=== PATIENT | female | born 1965 | race Caucasian/White ===

== ENCOUNTER 2020-06-14 18:49 | Emergency (ER) | payer SELFPAY ==
[2020-06-14 19:05] VITALS: TEMP 97.7
[2020-06-14] MEDS ORDERED: ONDANSETRON INJ 4 MG/2 ML VIAL ONE (19:21)
[2020-06-14] MEDS ORDERED: ONDANSETRON INJ 4 MG/2 ML VIAL IV ONE (19:25)
[2020-06-14] MEDS ORDERED: KETOROLAC TROMETHAMINE INJ 30 MG/ML VIAL IV ONE (19:50)
--- NOTE | 2020-06-14 19:52 | CT ---
EXAM DESCRIPTION: Abdoment/Pelvis w/o Contrast CLINICAL HISTORY: 54 years Female RLQ pain and right flank pain. COMPARISON: None TECHNIQUE: Multiple contiguous axial CT slices were taken from the diaphragms to the pubic symphysis without intravenous contrast. This exam was performed according to our departmental dose-optimization program, which includes automated exposure control, adjustment of the mA and/or kV according to patient size and/or use of iterative reconstruction technique. FINDINGS: The lung bases are clear. Visualized cardiomediastinal structures are normal. The liver, gallbladder, bile ducts, pancreas, spleen and adrenals are normal. There is moderate hydroureteronephrosis. There is a 3 mm stone within the bladder, adjacent to the right ureterovesical junction. The left kidney and ureter are normal. Uterus is normal. Bilateral ovarian cysts measuring 3.3 and 3.4 cm, respectively. The small bowel is normal. The appendix is normal. The large bowel is normal. No ascites, pneumatosis or pneumoperitoneum. No lymphadenopathy. The aorta and IVC are normal. There are no abdominal wall hernia defects. No destructive osseous lesions. IMPRESSION: 1. 3 mm bladder stone adjacent ureterovesical junction, with associated moderate hydroureteronephrosis, indicating recent passage into the bladder. 2. Bilateral ovarian cysts measuring up to 3.4 cm. Recommend prompt pelvic ultrasound follow-up. Electronically signed by: Abner Graham MD 06/14/2020 7:51 PM CDT
[2020-06-14] MEDS ORDERED: LIDOCAINE 2% 5 ML VIAL INJ ONE (20:12)
[2020-06-14] MEDS ORDERED: HYDROmorphone HCL INJ 2 MG/ML VIAL IV ONE (20:12)
[2020-06-14] MEDS ORDERED: LIDOCAINE 2% 50 ML VIAL ONE (20:15)
[2020-06-14] MEDS ORDERED: LIDOCAINE 2% 100 MG/5 ML SYG IV ONE (20:20)
--- NOTE | 2020-06-14 20:30 | ED.PDOC ---
History of Present Illness - General Chief Complaint: Abdominal Pain Stated Complaint: RLQ pain radiating to right groin Time Seen by Provider: 06/14/20 19:20 Source: patient, RN notes reviewed, Vital Signs reviewed Exam Limitations: no limitations - History of Present Illness Initial Comments: Patient is a 54-year-old white female who presents with complaints of right lower quadrant pain for the last day and a half. Patient states that it radiates to her right flank. Patient denies any fever or chills. The pain is stabbing in nature. It is colicky in nature. Is severe in intensity. Timing/Duration: getting worse, other - 1.5 days. Severity: severe Improving Factors: nothing Worsening Factors: nothing Associated Symptoms: nausea/vomiting - nausea only Allergies/Adverse Reactions: Allergies NO KNOWN ALLERGY Allergy (Verified 06/14/20 19:09) Home Medications: Ambulatory Orders Ketorolac Tromethamine [Toradol Tabs] 10 mg PO Q6H #12 tab 06/14/20 Review of Systems - Review of Systems Constitutional: States: no symptoms reported, see HPI. Denies: chills, fever, malaise, weakness EENTM: States: no symptoms reported. Denies: eye pain, blurred vision, double vision Respiratory: States: no symptoms reported. Denies: cough, short of breath Cardiology: States: no symptoms reported. Denies: chest pain, palpitations, syncope Gastrointestinal/Abdominal: States: see HPI, abdominal pain, nausea. Denies: diarrhea, vomiting Genitourinary: States: no symptoms reported. Denies: dysuria, frequency, hematuria Musculoskeletal: States: see HPI, back pain. Denies: joint pain, neck pain Skin: States: no symptoms reported. Denies: change in color, rash Neurological: States: no symptoms reported. Denies: tingling, tremors, weakness Endocrine: States: no symptoms reported. Denies: increased hunger, increased thirst, increased urine Hematologic/Lymphatic: States: no symptoms reported. Denies: blood clots, easy bleeding All other Systems: Reviewed and Negative, No Change from Baseline Past Medical History (General) - Patient Medical History Hx Seizures: No Hx Stroke: No Hx Dementia: No Hx Asthma: No Hx of COPD: No Hx Cardiac Disorders: No Hx Congestive Heart Failure: No Hx Pacemaker: No Hx Hypertension: No Hx Thyroid Disease: No Hx Diabetes: No Hx Gastroesophageal Reflux: No Hx Renal Disease: No Hx Cancer: No Hx of HIV: No Hx Hepatitis C: No Hx MRSA: No Surgical History: no surgical history - Vaccination History Hx Tetanus, Diphtheria Vaccination: No Hx Influenza Vaccination: No Hx Pneumococcal Vaccination: No Immunizations Up to Date: No - Social History Hx Tobacco Use: No Hx Chewing Tobacco Use: No Hx Alcohol Use: No Hx Substance Use: No Hx Substance Use Treatment: No Hx Depression: No Feels Threatened In Home Enviroment: No Feels Threatened In a Relationship: No Hx Physical Abuse: No Hx Emotional Abuse: No Hx Suspected Abuse: No - Female History Patient is a Female of Child Bearing Age (10 -59 yrs old): Yes Patient : No - Triage Comment ED Triage Comment: The patient was alert and oriented times 4 and complained of lower right abdominal pain. She was holding her right side and rated her pain a 9 on the pain scale. She denied nausea at the time of assessment but did have noted pain in the back right flank. Family Medical History - Family History Mother Family History: Unknown Physical Exam - Physical Exam General Appearance: Alert, Anxious, Obvious distress, Restless, Well Developed, Well Groomed, Well Hydrated, Well Nourished Eye Exam: bilateral normal Ears, Nose, Throat: hearing grossly normal, normal ENT inspection, normal pharynx Neck: non-tender, full range of motion, supple Respiratory: chest non-tender, lungs clear, normal breath sounds, no respiratory distress, no accessory muscle use Cardiovascular/Chest: normal peripheral pulses, regular rate, rhythm, no edema, no gallop, no murmur Peripheral Pulses: radial,right: 2+, radial,left: 2+ Gastrointestinal/Abdominal: normal bowel sounds, non tender, soft, no organomegaly, no pulsatile mass Back Exam: no vertebral tenderness, CVA tenderness (R) Extremity: normal range of motion, non-tender, normal inspection, no pedal edema 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 06/14/20 21:38 Patient's pain was markedly improved after IV medications. Patient has been given 1 L IV fluids and is tolerating p.o. Pay patient has been unable to urinate and provide a urine sample at this time. Plan on discharge home. Patient to return for worsening pain. I discussed this plan of care with the patient and her daughter and they voiced understanding and agreement with plan of care. Perico Suárez M.D. #[id number] - Results/Orders Results/Orders: EXAM DESCRIPTION: Abdoment/Pelvis w/o Contrast CLINICAL HISTORY: 54 years Female RLQ pain and right flank pain. COMPARISON: None TECHNIQUE: Multiple contiguous axial CT slices were taken from the diaphragms to the pubic symphysis without intravenous contrast. This exam was performed according to our departmental dose-optimization program, which includes automated exposure control, adjustment of the mA and/or kV according to patient size and/or use of iterative reconstruction technique. FINDINGS: The lung bases are clear. Visualized cardiomediastinal structures are normal. The liver, gallbladder, bile ducts, pancreas, spleen and adrenals are normal. There is moderate hy droureteronephrosis. There is a 3 mm stone within the bladder, adjacent to the right ureterovesical junction. The left kidney and ureter are normal. Uterus is normal. Bilateral ovarian cysts measuring 3.3 and 3.4 cm, respectively. The small bowel is normal. The appendix is normal. The large bowel is normal. No ascites, pneumatosis or pneumoperitoneum. No lymphadenopathy. The aorta and IVC are normal. There are no abdominal wall hernia defects. No destructive osseous lesions. IMPRESSION: 1. 3 mm bladder stone adjacent ureterovesical junction, with associated moderate hydroureteronephrosis, indicating recent passage into the bladder. 2. Bilateral ovarian cysts measuring up to 3.4 cm. Recommend prompt pelvic ultrasound follow-up. Electronically signed by: Abner Graham MD 06/14/2020 7:51 PM 06/14/20 19:09 UA [URINALYSIS] Stat 06/14/20 19:15 EKG STAT Laboratory Results - last 24 hr 06/14/20 06/14/20 19:31 19:31 WBC 6.9 RBC 4.54 Hgb 13.1 Hct 39.0 MCV 85.8 MCH 29.0 MCHC 33.7 RDW 16.1 H Plt Count 390 MPV 7.3 L Absolute Neuts (auto) 5.50 Absolute Lymphs (auto) 1.10 Absolute Monos (auto) 0.30 Absolute Eos (auto) 0.00 Absolute Basos (auto) 0.00 Neutrophils % 79.5 H Lymphocytes % 15.7 L Monocytes % 3.9 Eosinophils % 0.2 L Basophils % 0.7 Sodium 138 Potassium 3.7 Chloride 106 Carbon Dioxide 20 L Anion Gap 15.7 BUN 12 Creatinine 0.80 BUN/Creatinine Ratio 15.0 Random Glucose 132 H Serum Osmolality 277.3 Calcium 8.9 Total Bilirubin 0.7 AST 23 ALT 16 Alkaline Phosphatase 70 Serum Total Protein 7.7 Albumin 4.3 Globulin 3.4 Albumin/Globulin Ratio 1.3 EKG performed on 14 June 2020 at 1857 hrs.: Normal sinus rhythm at 76 bpm, normal axis deviation, no ST or T wave changes, normal EKG. No comparison EKG available at this time. Departure - Departure Clinical Impression: Ureterolithiasis, Flank pain Time of Disposition: 21:40 Disposition: Discharge to Home or Self Care Condition: Good Departure Forms: ED Discharge - Pt. Copy, Patient Portal Self Enrollment Instructions: DI for Abdominal Pain-Adult, Kidney Stones (DC) Diet: resume usual diet Activity: increase activity as tolerated Referrals: GEGE HSU MD [Consulting Staff] - 1-5 Days Prescriptions: Ketorolac Tromethamine [Toradol Tabs] 10 mg PO Q6H #12 tab Home Medications: Ambulatory Orders Ketorolac Tromethamine [Toradol Tabs] 10 mg PO Q6H #12 tab 06/14/20
[2020-06-14] MEDS ORDERED: SODIUM CHLORIDE 0.9% 1000ML 1,000 ML IVS ONE (20:52)
[2020-06-14] MEDS ORDERED: SODIUM CHLORIDE 0.9% (FLUSH) 10 ML SYG ONE (21:01)
[2020-06-14 21:50] VITALS: BP 138/90; O2SAT 99
== END 2020-06-14 21:50 | disposition home or self-care (01) ==
LOC: ER 18:49
DX: N13.2 Hydronephrosis with renal and ureteral calculous obstruction (principal); N83.201 Unspecified ovarian cyst, right side; N83.202 Unspecified ovarian cyst, left side
CPT/HCPCS: 36415; 74176; 80053; 85025; 93005; 96374; 96375; 96376; 99284; A4216; J1170; J1885; J2405; J7030